=== PATIENT | female | born 1960 | race Caucasian/White ===

== ENCOUNTER 2017-06-26 10:07 | Emergency (ER) | payer MEDICAID ==
[2017-06-26] MEDS: ALBUTEROL HFA 8 GM INHALER INH (13:45)
== END 2017-06-26 14:18 | disposition home or self-care (01) ==
LOC: FTE 10:07
DX: J98.01 Acute bronchospasm (principal); B34.9 Viral infection, unspecified
CPT/HCPCS: 99284-25; Z7502

== ENCOUNTER 2018-02-25 19:55 | Emergency (ER) | payer MEDICAID ==
[2018-02-25] MEDS: IBUPROFEN 600 MG TAB PO (23:12)
[2018-02-25] MEDS: DIPHTH/TET/ACEL PERTUSS (ADULT) 0.5 ML VIAL IM* (23:13)
== END 2018-02-25 23:53 | disposition home or self-care (01) ==
LOC: FTE 19:55
DX: S61.411A Laceration without foreign body of right hand, initial encounter (principal); W26.8XXA Contact with other sharp object(s), not elsewhere classified, initial encounter; Y92.9 Unspecified place or not applicable; Z23 Encounter for immunization
CPT/HCPCS: 12001; 90471; 90715; 99283-25